=== PATIENT | male | born 1990 | race Caucasian/White ===

== ENCOUNTER 2019-08-21 09:10 | Inpatient (IN) | payer SELFPAY ==
[~2019-08-21] VITALS: Ht 177.8 cm; Wt 64.5 kg
[2019-08-21] MEDS: NICOTINE 21MG/24HR 1 EA TRANSDERMAL TD SCH (09:00)
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
[2019-08-21] MEDS ORDERED: traZODone 50 MG TAB PO PRN (13:00)
[2019-08-21] MEDS ORDERED: MAALOX 30 ML SUSP *UDC PO PRN (13:00)
[2019-08-21] MEDS ORDERED: MOM 30ML SUSPENSION UDC PO PRN (13:00)
[2019-08-21 16:00] VITALS: BP 137/79
[2019-08-21] MEDS: ACETAMINOPHEN TAB 650MG DOSE (2X325MG) PO PRN (16:17)
[2019-08-21] MEDS ORDERED: CEPACOL LOZENGE PO PRN (17:15)
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
[2019-08-21 18:31] LABS: BASO # 0.1 10^3/uL (0.0-0.2); BASO % 0.6 % (0.0-1.0); EOS # 0.1 10^3/uL (0.0-0.5); EOS % 1.3 % (0.0-3.0); HEMATOCRIT 44.8 % (42.0-52.0); HEMOGLOBIN 14.9 g/dl (13.5-17.5); LYMPH # 2.7 10^3/uL (1.5-5.0); LYMPH % 26.5 % (24.0-44.0); MEAN CORPUSCULAR HEMOGLOBIN 31.5 pg (27.0-33.0); MEAN CORPUSCULAR HGB CONC 33.3 g/dl (32.0-36.5); MEAN CORPUSCULAR VOLUME 94.7 fl (80.0-96.0); MONO % 9.9 % (0.0-5.0); NEUTROPHILS # 6.2 10^3/uL (1.5-8.5); NEUTROPHILS % 61.4 % (36.0-66.0); PLATELET COUNT, AUTOMATED 257 10^3/uL (150-450); RED BLOOD COUNT 4.73 10^6/uL (4.30-6.10)
[2019-08-22 06:59] VITALS: BP 117/63
[2019-08-22] MEDS: NICOTINE 21MG/24HR 1 EA TRANSDERMAL TD SCH (08:28)
[2019-08-22] MEDS: ACETAMINOPHEN TAB 650MG DOSE (2X325MG) PO PRN ×2 (08:29→15:27)
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
[2019-08-22] MEDS ORDERED: hydrOXYzine 25 MG TAB PO PRN (11:30)
[2019-08-22 18:13] VITALS: BP 135/80
[2019-08-23 06:12] VITALS: BP 144/70
[2019-08-23] MEDS ORDERED: CEPACOL LOZENGE PO PRN (09:00)
[2019-08-23] MEDS: NICOTINE 21MG/24HR 1 EA TRANSDERMAL TD SCH (09:05)
[2019-08-23] MEDS: ACETAMINOPHEN TAB 650MG DOSE (2X325MG) PO PRN (09:08)
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
== END 2019-08-23 13:50 | disposition home or self-care (01) | DRG 755 ==
LOC: M ED 09:10 → M ED INP 12:55 → M PSY 14:02
PROVIDERS: ADMIT Psychiatry & Neurology Psychiatry; ATTEND Psychiatry & Neurology Psychiatry
DX: F43.23 Adjustment disorder with mixed anxiety and depressed mood (principal); R45.851 Suicidal ideations; F10.10 Alcohol abuse, uncomplicated; J06.9 Acute upper respiratory infection, unspecified

== ENCOUNTER 2023-09-21 13:22 | Emergency (ER) | payer SELFPAY ==
[~2023-09-21] VITALS: Ht 180.3 cm; Wt 73.1 kg
[2023-09-21] MEDS ORDERED: IPRATROPIUM 0.5MG/ALBUTEROL 2.5MG INH SOL UD 3ML (DUONEB) NEB ONE (18:55)
[2023-09-21 19:45] VITALS: BP 132/87; TEMP 98.8; O2SAT 99
[2023-09-21] MEDS ORDERED: AMOX500T PO (19:47)
[2023-09-21] MEDS ORDERED: VENTAER INH (19:47)
== END 2023-09-21 19:55 | disposition home or self-care (01) ==
LOC: M ED 13:22
DX: J20.9 Acute bronchitis, unspecified (principal); F17.210 Nicotine dependence, cigarettes, uncomplicated; J30.81 Allergic rhinitis due to animal (cat) (dog) hair and dander; J30.1 Allergic rhinitis due to pollen; Z79.2 Long term (current) use of antibiotics; Z79.51 Long term (current) use of inhaled steroids